=== PATIENT | male | born 2000 | race Two or more races ===

== ENCOUNTER 2018-07-28 16:56 | Emergency (ER) | payer MEDICAID, OTHER ==
[~2018-07-28] VITALS: Ht 177.8 cm; Wt 83.9 kg
[2018-07-28 17:02] VITALS: BP 118/76
[2018-07-28] MEDS ORDERED: ACETAMINOPHEN/CODEINE#3 (300/30mg) TAB PO ONE (19:00)
[2018-07-28] MEDS ORDERED: BACLOFEN 10 MG TAB PO ONE (19:00)
== END 2018-07-28 20:43 | disposition home or self-care (01) ==
LOC: ER 16:58
DX: S50.812A Abrasion of left forearm, initial encounter (principal); S50.811A Abrasion of right forearm, initial encounter; S00.31XA Abrasion of nose, initial encounter; V49.49XA Driver injured in collision with other motor vehicles in traffic accident, initial encounter; Y93.89 Activity, other specified; Y92.89 Other specified places as the place of occurrence of the external cause; Y99.8 Other external cause status
CPT/HCPCS: 71046; 73090; 73120

== ENCOUNTER 2020-10-10 22:53 | Emergency (ER) | payer MEDICAID ==
[~2020-10-10] VITALS: Ht 175.3 cm; Wt 88.5 kg
[2020-10-11] MEDS ORDERED: KETAMINE 50mg/ML 10ml Vial (500mg/10ml) IV ONE (04:15)
[2020-10-11] MEDS ORDERED: KETOROLAC TROMETH 30 MG/ML 1ML VIAL IV ONE (06:45)
[2020-10-11 07:20] VITALS: BP 124/71
== END 2020-10-11 07:23 | disposition home or self-care (01) ==
LOC: ER 22:53
DX: S52.591A Other fractures of lower end of right radius, initial encounter for closed fracture (principal); S52.611A Displaced fracture of right ulna styloid process, initial encounter for closed fracture; W18.39XA Other fall on same level, initial encounter; Y93.89 Activity, other specified; Y92.89 Other specified places as the place of occurrence of the external cause; Y99.8 Other external cause status
CPT/HCPCS: 25605; 73100; 96374; 96375; 99152; 99153; 99285; J1885; 73110; 73130

== ENCOUNTER 2022-07-17 08:18 | Emergency (ER) | payer MEDICAID ==
[~2022-07-17] VITALS: Ht 177.8 cm; Wt 91.0 kg
[2022-07-17 08:26] VITALS: BP 125/92
[2022-07-17 09:15] LABS: Basophils # (auto) 0 10 ^3/uL (0-0.2); Basophils % (auto) 0.6 % (0.0-2.0); Eosinophils # (auto) 0 10 ^3/uL (0-0.8); Eosinophils % (auto) 0.7 % (0.0-7.0); Hematocrit 49.3 % (41.0-53.0); Hemoglobin 17.3 g/dL (13.5-17.5); Lymphocytes # (auto) 1.6 10 ^3/uL (0.4-5.4); Lymphocytes % (auto) 23.6 % (10.0-50.0); Mean Corpuscular Hemoglobin 30.5 pg (28.0-32.0); Mean Corpuscular Volume 87.1 fL (80.0-100.0); Monocytes # (auto) 0.3 10 ^3/uL (0-1.3); Monocytes % (auto) 4.9 % (0.0-12.0); Neutrophils # (auto) 4.8 10 ^3/uL (1.6-8.6); Neutrophils % (auto) 70.2 % (37.0-80.0); Nucleated Red Blood Cells % 1.1 %; Red Blood Cells 5.66 10^6/uL (4.5-5.90); Red Cell Distribution Width 12.5 % (11.8-14.3); White Blood Cell 6.8 10^3/uL (4.4-10.8)
[2022-07-17] MEDS ORDERED: LORazepam 0.5 MG TAB PO ONE (09:15)
[2022-07-17 09:16] LABS: Alcohol, Urine < 3.0 mg/dL (0-10); Amphetamine Screen, Urine NEGATIVE (NEGATIVE); Barbiturate Scree,Urine NEGATIVE (NEGATIVE); Benzodiazephine Screen, Urine NEGATIVE (NEGATIVE); Cannabinoid Screen, Urine NEGATIVE (NEGATIVE); Cocaine Screen, Urine NEGATIVE (NEGATIVE); Opiate Scree,Urine NEGATIVE (NEGATIVE); Phencyclidine Screen, Urine NEGATIVE (NEGATIVE)
[2022-07-17 09:33] LABS: BUN/Creatinine Ratio 14.4 (10.0-20.0); Potassium 4.1 mmol/L (3.5-5.1)
[2022-07-17] MEDS ORDERED: IBUP800T27 PO (10:02)
== END 2022-07-17 10:17 | disposition home or self-care (01) ==
LOC: ER 08:18
DX: G44.209 Tension-type headache, unspecified, not intractable (principal); F45.8 Other somatoform disorders; Z79.899 Other long term (current) drug therapy
CPT/HCPCS: 36415; 70450; 80048; 80307; 85025